=== PATIENT | female | born 1980 | race Caucasian/White ===

== ENCOUNTER 2016-11-21 07:42 | Emergency (ER) | payer OTHER ==
[~2016-11-21] VITALS: Ht 172.7 cm; Wt 61.2 kg
--- NOTE | 2016-11-21 07:46 | NUR ---
ARRIVAL PT ARRIVED AMBULATORY TO ER 4 C/O LEFT EYE PAIN, REDNESS AND WATERING X2-3 WEEKS. PT STATES HAD SURGERY ON EYE 9 YEARS AGO. EDP NOTIFIED OF PT ARRIVAL.
--- NOTE | 2016-11-21 08:04 | NUR ---
RADHA ESCAMILLA MBA ON PHONE WITH DR GARCIA AT THIS TIME REGARDING PT.
--- NOTE | 2016-11-21 08:11 | ER.PDOC ---
General Chief Complaint: Eye Problems Stated Complaint: EYE ISSUES Time seen by MD: 06:06 Source: patient Exam Limitations: no limitations History of Present Illness Initial Comments Left eye pain and redness for 3 weeks. No injury. Timing/Duration: gradual Associated Symptoms: pian, redness Location: left eye Allergies: Coded Allergies: No Known Allergies (Unverified , 11/21/16) Home Meds Unable to Obtain Active Prescriptions or Reported Meds Past Medical History Medical History: thyroid disease, other (left eye surgery ) Surgical History: breast augmentation, , tonsillectomy LMP (females 10-50): last week Social History Smoking: less than 1 pack/day Alcohol Use: occassionally Drug Use: none Constitutional: no symptoms reported Eyes: see HPI Respiratory: no symptoms reported Cardiovascular: no symptoms reported Gastrointestinal: no symptoms reported All Other Systems: Reviewed and Negative Physical Exam General Appearance: alert, no distress Visual Acuity: no globe trauma Eyelid: (L) edema Conjunctiva/Sclera: (L) injected EOM's: intact, no nystagmus Pupils: PERRL, nml accommodation Head/ENT: nml inspection, pharynx nml Neck/Back: nml inspection, painless ROM Resp/CVS: no resp distress, lungs clear, heart sounds nml, reg. rate & rhythm Abdomen: non-tender, no organomegaly NEURO/PSYCH: oriented X3, mood/effect nml Progress Progress Spoke to Dr. Prabhakar with [facility], patient to go there from the ED. Departure Time of Disposition: 06:07 Disposition: 01 HOME, SELF-CARE Impression: Primary Impression: Acute pain Additional Impression: Redness of eye, left Condition: Stable Referrals: PCP,UNKNOWN (PCP) PRIMARY CARE PROVIDER Additional Instructions: F/U with Dr. Prabhakar with [facility] this morning straight from the ED. Scripts Unable to Obtain Active Prescriptions or Reported Meds LINA JUÁREZ MD November 21, 2016 08:11
[2016-11-21 08:15] VITALS: BP 147/95
== END 2016-11-21 08:15 | disposition home or self-care (01) ==
LOC: ER 07:42
DX: H57.12 Ocular pain, left eye (principal); E07.9 Disorder of thyroid, unspecified; F17.200 Nicotine dependence, unspecified, uncomplicated; Z98.890 Other specified postprocedural states
CPT/HCPCS: 99281